=== PATIENT | male | born 2000 | race Caucasian/White ===

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

== ENCOUNTER 2021-04-12 21:21 | Emergency (ER) | payer OTHER | END 2021-04-12 21:51 | disposition home or self-care (01) | LOC: BURERS 21:21 | DX: S61.211A Laceration without foreign body of left index finger without damage to nail, initial encounter (principal); F17.210 Nicotine dependence, cigarettes, uncomplicated; W26.0XXA Contact with knife, initial encounter | CPT/HCPCS: 12001 ==